=== PATIENT | female | born 1975 | race Caucasian/White ===

== ENCOUNTER 2020-05-26 05:55 | Emergency (ER) | payer MEDICAID, OTHER ==
[~2020-05-26] VITALS: Ht 170.2 cm; Wt 74.8 kg
[~2020-05-26 05:55] MED LIST: ABAC1TAB15 PO; Fluconazole PO; OMEP40CA13 PO
--- NOTE | 2020-05-26 06:14 | NUR ---
PATIENT CAME TO ER BED 7 C/O SHARP RIGHT EAR PAIN. PATIENT STATES THAT SHE ALSO HAS RIGHT RIBCAGE SHINGLES. PATIENT STATES THAT SHE IS CURRENTLY TAKING ANTIVIRAL AND STEROIDS FOR 1x WEEKS. AAOX4. NO SOB. BREATHING EVENLY AND UNLABORED ON ROOM AIR.
--- NOTE | 2020-05-26 06:49 | NUR ---
Patient discharged to home in stable condition. Written and verbal after care instructions given. Patient verbalizes understanding of instruction.
[2020-05-26 06:50] VITALS: BP 131/72
== END 2020-05-26 06:50 | disposition home or self-care (01) ==
LOC: ER 06:03
DX: B02.9 Zoster without complications (principal); Z90.89 Acquired absence of other organs; Z88.0 Allergy status to penicillin; Z60.2 Problems related to living alone; Z79.899 Other long term (current) drug therapy

== ENCOUNTER 2020-05-27 07:13 | Emergency (ER) | payer MEDICAID, OTHER ==
[~2020-05-27] VITALS: Ht 170.2 cm; Wt 77.1 kg
--- NOTE | 2020-05-27 07:27 | NUR ---
CAME IN FOR R EAR PAIN SINCE THURSDAY NIGHT, TO ER BED 9, HOOKED TO MONITOR, AWAITING MD DURAN.
--- NOTE | 2020-05-27 07:56 | NUR ---
DR WARD AT BEDSIDE
[2020-05-27] MEDS ORDERED: HYDROMORPHONE 1 MG/1 ML DISP.SYRIN ONE (08:09)
[2020-05-27 08:15] VITALS: BP 124/74
--- NOTE | 2020-05-27 08:15 | NUR ---
Patient discharged to home in stable condition. Written and verbal after care instructions given. Patient verbalizes understanding of instruction. Instructed not to drive. Patient states "my boyfriend is outside waiting for me".
[2020-05-27] MEDS ORDERED: HYDROMORPHONE INJ 0.5 MG/0.5 ML SYRINGE IM ONE (08:30)
== END 2020-05-27 08:16 | disposition home or self-care (01) ==
LOC: ER 07:19
DX: H66.91 Otitis media, unspecified, right ear (principal); Z90.89 Acquired absence of other organs; Z88.0 Allergy status to penicillin; Z60.2 Problems related to living alone; Z79.899 Other long term (current) drug therapy
CPT/HCPCS: 96372; 99283; J1170

== ENCOUNTER 2021-01-15 10:49 | Emergency (ER) | payer MEDICAID ==
[~2021-01-15] VITALS: Ht 170.2 cm; Wt 72.6 kg
[2021-01-15 10:59] VITALS: BP 128/69
--- NOTE | 2021-01-15 11:10 | NUR ---
dr. jones at bedside for eval. I&D set up.
[2021-01-15] MEDS ORDERED: LIDOCAINE 1%-EPI 1:100,000 20 ML VIAL ONE (11:16)
--- NOTE | 2021-01-15 11:27 | NUR ---
I&D DONE BY DR. LENNON. PACKED WITH STRIP, AND COVERED WITH DRY DRESSING.
[2021-01-15] MEDS ORDERED: LIDOCAINE 1%-EPI 1:100,000 20 ML VIAL TP ONE (11:30)
[2021-01-15] MEDS ORDERED: CLIN300C12 PO (11:30)
--- NOTE | 2021-01-15 11:36 | NUR ---
Patient discharged to home in stable condition. Written and verbal after care instructions given. Patient verbalizes understanding of instruction.
== END 2021-01-15 11:36 | disposition home or self-care (01) ==
LOC: ER 10:57
DX: L02.31 Cutaneous abscess of buttock (principal); Z90.89 Acquired absence of other organs; Z88.0 Allergy status to penicillin; Z60.2 Problems related to living alone; Z79.899 Other long term (current) drug therapy
CPT/HCPCS: 10060; 99283; J3490